=== PATIENT | female | born 1955 | race Caucasian/White ===

== ENCOUNTER → 2019-04-29 | Outpatient (CLI) | payer MEDICARE ==
[2019-04-29 12:50] LABS: HCT 42.2 % (34.0-46.0); HGB 13.5 gm/dL (11.4-16.0); MCH 28.9 pg (25.0-35.0); MCV 90.4 fL (80.0-100.0); Mean Platelet Volume 7.1; Platelet Count 239 k/uL (150-450); RBC 4.67 m/uL (3.80-5.40); RDW 13.1 % (11.5-15.5)
[2019-04-29 12:59] LABS: African American GFR (CKD) >90 (>60 ml/min/1.73 sqM); Anion Gap 6 mmol/L; Blood Urea Nitrogen 17 mg/dL (7-17); Carbon Dioxide 30 mmol/L (22-30); Chloride 107 mmol/L (98-107); Potassium 5.1 mmol/L (3.5-5.1); Sodium 143 mmol/L (137-145)
== END | disposition home or self-care (01) ==
LOC: LABPAT 11:37
PROVIDERS: ATTEND Internal Medicine Interventional Cardiology
DX: Z01.812 Encounter for preprocedural laboratory examination (principal); I48.0 Paroxysmal atrial fibrillation
CPT/HCPCS: 36415; 80051; 82565; 84520; 85027

== ENCOUNTER 2019-04-30 06:32 | Day surgery (SDC) | payer MEDICARE, OTHER ==
[~2019-04-30 06:32] MED LIST: BENZOCAINE SPRAY 1 CAN TOPICAL PRN; LACTATED RINGERS 1,000 ML IV SCH; MIDAZOLAM 2 MG/2 ML VIAL IV ONE; SODIUM CHLORIDE 0.9% 1,000 ML IV SCH; fentaNYL (PF) 50 MCG/ML 5 ML AMP IVP ONE
[2019-04-30 06:59] VITALS: TEMP 97.6
[2019-04-30] MEDS ORDERED: LIDOCAINE 1% INJ 10MG/ML (20 ML MDV) ONE (07:28)
[2019-04-30] MEDS ORDERED: PROPOFOL 10 MG/ML 20 ML VIAL IV ONE (07:28)
[2019-04-30] MEDS ORDERED: BENZOCAINE SPRAY 1 CAN MUCOUS MEM ONE (07:54)
--- NOTE | 2019-04-30 08:12 | P.PCN ---
Date of Procedure: 04/30/19 Operative Findings: TRANSESOPHAGEAL ECHOCARDIOGRAM MILITARY TECHNICIAN: JOSE HOLLEY MD, RPVI INDICATION: This is a 64-year-old female patient who was diagnosed recently with atrial fibrillation with uncontrolled heart rate. She was started on oral anticoagulation and brought today to undergo a cardioversion. The AMY is to rule out any intracardiac thrombus. SEDATION: Deep sedation was performed using propofol with CALCULUS PROFESSOR in the room. COMPLICATION: None PROCEDURE DESCRIPTION: After obtaining an informed consent, the patient was brought to transesophageal echocardiogram room. Pulse oximetry and heart monitors were attached to the patient. The patient throat was sprayed using lidocaine. The patient was turned into left lateral position. After that a bite guard was placed. After an appropriate conscious sedation was initiated, the transesophageal echocardiogram was advanced through a bite guard into the mid esophagus. A 2-D echocardiogram images, color Doppler images, continuous wave images, pulse-wave images, of various cardiac structure were performed. After that the transesophageal echocardiogram probe was advanced into the stomach and fixed to obtain transgastric view was. The probe was brought into the mid esophagus. Inter-atrial septum was interrogated using 2D images, color Doppler images, and then contrast study. After that transesophageal echocardiogram was withdrawn out and upon withdrawing the descending thoracic aorta all the way up to the arch was evaluated. FINDING: The left atrium is severely dilated. The left atrial appendage appeared to be free from any thrombus. Intra-atrial septum appeared to be intact with color flow Doppler. No contrast study was performed. The left ventricle appeared to be mildly impaired in terms of ejection fraction was EF around 45%. The aortic valve is trileaflet valve without stenosis or regurgitation. The mitral valve is thickened with evidence of moderate mitral regurgitation. There was mild tricuspid regurgitation and mild pulmonic insufficiency. CONCLUSION: 1. Severely dilated left atrium 2. Intact left atrial appendage without any evidence of thrombus 3. Intact interatrial septum by color flow Doppler. No contrast study was performed 4. Mildly impaired LV function was EF around 45% 5. Thickened mitral valve leaflets with moderate MR 6. Trileaflet aortic valve without stenosis or regurgitation 7. Normal tricuspid valve and pulmonary valve 8. Normal aortic root dimension 9. No evidence of pericardial effusion 10. Please note that the patient was agitated in spite of giving propofol.
--- NOTE | 2019-04-30 08:14 | P.PCN ---
Date of Procedure: 04/30/19 Operative Findings: CARDIOVERSION REPORT Performing physician Denver Guillen MD, RPVI Procedure performed Successful cardioversion of atrial fibrillation to normal sinus mechanism using 200 J and first attempt Complication None Level of sedation Deep sedation was performed using propofol and CHIEF FUNDRAISING OFFICER in the room Procedure description After AMY was performed and left atrial appendage thrombus was ruled out we pursued with a cardioversion. The patient cardioverted from atrial fibrillation to normal sinus mechanism using 200 J and first attempt Conclusion Successful cardioversion of atrial fibrillation to normal sinus mechanism using 200 J and first attempt Postprocedure management 1. Increase the dose of metoprolol to 25 mg by mouth 3 times a day 2. Obtain a 12 please EKG 3. Continue oral anticoagulation 4. Follow-up with the patient
[2019-04-30 09:59] VITALS: BP 99/64; PULSE 58; RESP 16
== END 2019-04-30 10:00 | disposition home or self-care (01) ==
LOC: CATHCVL 06:32
PROVIDERS: ATTEND Internal Medicine Interventional Cardiology
DX: I48.0 Paroxysmal atrial fibrillation (principal); I08.1 Rheumatic disorders of both mitral and tricuspid valves; Z79.01 Long term (current) use of anticoagulants; Z79.899 Other long term (current) drug therapy; Z88.5 Allergy status to narcotic agent; Z87.891 Personal history of nicotine dependence; Z90.710 Acquired absence of both cervix and uterus; Z90.89 Acquired absence of other organs
CPT/HCPCS: 93312; 93320; 93005; 93325; 92960; J2001; J2704

== ENCOUNTER → 2019-05-28 | Outpatient (CLI) | payer MEDICARE ==
[2019-05-28 08:53] LABS: HCT 39.7 % (34.0-46.0); HGB 13.4 gm/dL (11.4-16.0); MCH 30.3 pg (25.0-35.0); MCHC 33.8 g/dL (31.0-37.0); MCV 89.5 fL (80.0-100.0); Mean Platelet Volume 7.6; Platelet Count 244 k/uL (150-450); RBC 4.44 m/uL (3.80-5.40); RDW 12.9 % (11.5-15.5); WBC 6.9 k/uL (3.8-10.6)
[2019-05-28 09:09] LABS: African American GFR (CKD) >90 (>60 ml/min/1.73 sqM); Anion Gap 8 mmol/L; Blood Urea Nitrogen 14 mg/dL (7-17); Carbon Dioxide 26 mmol/L (22-30); Chloride 107 mmol/L (98-107); Non-African American GFR(CKD) >90 (>60 ml/min/1.73 sqM); Potassium 4.7 mmol/L (3.5-5.1); Sodium 141 mmol/L (137-145)
== END | disposition home or self-care (01) ==
LOC: LABWHC1 08:26
PROVIDERS: ATTEND Internal Medicine Interventional Cardiology
DX: Z01.812 Encounter for preprocedural laboratory examination (principal); I48.0 Paroxysmal atrial fibrillation
CPT/HCPCS: 36415; 80051; 82565; 84520; 85027

== ENCOUNTER 2019-05-31 10:51 | Day surgery (SDC) | payer MEDICARE ==
[2019-05-26 11:55] VITALS: BMI 35.2
[~2019-05-31 10:51] MED LIST changes: +ALPRAZolam 0.25 MG TAB PO PRN; +ALPRAZolam 0.5 MG TAB PO PRN; +ASPIRIN 325 MG TAB PO STA; +ATORVASTATIN 80 MG TAB PO STA; -BENZOCAINE SPRAY 1 CAN TOPICAL PRN; -LACTATED RINGERS 1,000 ML IV SCH; -MIDAZOLAM 2 MG/2 ML VIAL IV ONE; +NITROGLYCERIN SL TABS 0.4 MG TAB SUBLINGUAL PRN; -SODIUM CHLORIDE 0.9% 1,000 ML IV SCH; +SODIUM CHLORIDE 0.9% 1,000 ML in EMPTY BAG 1 BAG IV ONE; -fentaNYL (PF) 50 MCG/ML 5 ML AMP IVP ONE
[2019-05-31 11:21] VITALS: TEMP 97.9
[2019-05-31] MEDS ORDERED: LIDOCAINE 1% INJ 10MG/ML (20 ML MDV) ONE (11:48)
[2019-05-31] MEDS ORDERED: VERAPAMIL 2.5 MG/ML 2 ML AMP ONE (11:48)
[2019-05-31] MEDS ORDERED: HEPARIN SODIUM 1,000 UN/ML (10ML VL) ONE (11:48)
[2019-05-31] MEDS ORDERED: MIDAZOLAM 2 MG/2 ML VIAL IVP ONE (12:20)
[2019-05-31] MEDS ORDERED: LIDOCAINE 1% INJ 10MG/ML (20 ML MDV) SQ ONE (12:23)
[2019-05-31] MEDS: VERAPAMIL SYRINGE (5 MG/10 ML) INTRAARTER ONE ×3 (12:25→12:36)
[2019-05-31] MEDS ORDERED: HEPARIN SODIUM 1,000 UN/ML (10ML VL) IV ONE (12:26)
[2019-05-31] MEDS ORDERED: MIDAZOLAM 2 MG/2 ML VIAL IV ONE (12:29)
[2019-05-31] MEDS ORDERED: IOPAMIDOL-370 125ML BTL INJ ONE ×2 (12:34→12:37)
[2019-05-31] MEDS ORDERED: RX INFO: IV CONTRAST WAS GIVEN 1 EACH MISC MISCELLANE PRN (12:39)
[2019-05-31] MEDS ORDERED: SODIUM CHLORIDE 0.9% 1,000 ML IV SCH (12:45)
[2019-05-31 14:34] VITALS: BP 112/84; PULSE 85; RESP 18
--- NOTE | 2019-05-31 16:10 | LTR ---
DATE OF SERVICE: 05/31/[address] Aguiar: I had the pleasure of seeing Natasha Fitzpatrick at [facility] on May 31, 2019. As you know, she is a pleasant 64-year-old female patient who I follow in the office for atrial fibrillation. She underwent cardioversion and she came back to atrial fibrillation after that. A stress test was performed to assess for severe CAD and that came in to be abnormal. I did perform a heart catheterization on her and that revealed normal coronaries. A copy of the heart catheterization will be forwarded to you. She is going to be discharged home today and I will follow up with her in the office next week. I want to thank you for allowing us to participate in her care and please do not hesitate to call if you have any question or concerns. Sincerely, ALISA / TETE: [id number] /
--- NOTE | 2019-05-31 16:40 | CC ---
CARDIAC CATHETERIZATION REPORT DATE OF SERVICE: May 31, 2019 PERFORMING PHYSICIAN: Denver Guillen MD. PROCEDURE PERFORMED: 1. Selective right and left coronary angiogram. 2. Left heart catheterization. INDICATION: This is a 64-year-old female patient with history of paroxysmal atrial fibrillation as well as significant history of smoking, who underwent recently cardioversion and subsequently she came back to atrial fibrillation. She underwent myocardial perfusion imaging stress test and that revealed reversible defect. Because of that, a heart catheterization was advised. APPROACH: Right radial artery. COMPLICATION: None. LEVEL OF SEDATION: Moderate with sedation length of 14 minutes. PROCEDURE DESCRIPTION: After obtaining informed consent, the patient was brought to the cardiac greens laborer. The right radial artery was cannulated using micropuncture technique, the micropuncture wire passed easily. Then I placed a 6-E[place] sheath in the right radial artery. After that I gave the patient 2 mg of verapamil IA and 10,000 units of heparin IV. I did selective right and left coronary angiogram using JR4 and JL3.5 catheters. Left heart catheterization was performed using the JR4 catheter which crossed the aortic valve. Then I did pullback across aortic valve. The procedure was completed without any complication. SELECTIVE CORONARY ANGIOGRAM: 1. The right coronary artery is a moderate caliber vessel and is a dominant vessel and appeared to be angiographically normal. It distally bifurcates into PDA and PLV branches and both appeared to be angiographically normal. 2. The left main is angiographically normal. It is a short left main. It bifurcates into LCX and LAD. 3. The LCX is a large caliber vessel, it is a nondominant vessel. The left circumflex is angiographically normal. In the midportion gives rise into a large OM branch which seems to be normal. Distally, the circ continues to be normal. 4. The LAD is a large caliber vessel. It is angiographically normal. In the midportion, gives rise into a medium caliber branch diag which is angiographically normal. HEMODYNAMICS: The LVEDP was 10 mmHg without significant gradient across the aortic valve. CONCLUSION: 1. Normal coronary angiogram. 2. Normal left ventricular end-diastolic pressure. POSTPROCEDURE MANAGEMENT: 1. Medical treatment. 2. Follow up with the patient. MMODL / IJN: [id number] /
== END 2019-05-31 17:25 | disposition home or self-care (01) ==
LOC: CATHCVL 10:51
PROVIDERS: ATTEND Internal Medicine Interventional Cardiology
DX: I48.0 Paroxysmal atrial fibrillation (principal); R94.39 Abnormal result of other cardiovascular function study; R06.02 Shortness of breath; Z72.0 Tobacco use; Z79.01 Long term (current) use of anticoagulants; Z79.899 Other long term (current) drug therapy
CPT/HCPCS: 93458; C1894; J2250; J2001; J1644; Q9967

== ENCOUNTER 2024-01-27 08:00 | Day surgery (SDC) | payer MEDICARE ==
[2024-01-27] MEDS ORDERED: LACTATED RINGERS 1,000 ML BAG ONE (09:00)
[2024-01-27] MEDS ORDERED: PROPOFOL 10 MG/ML 20 ML VIAL IV ONE (09:27)
[2024-01-27] MEDS ORDERED: LIDOCAINE 1% INJ 10MG/ML (20 ML MDV) ONE (09:27)
--- NOTE | 2024-02-18 13:00 | P.PCN ---
Date of Procedure: 01/27/24 Procedure(s) Performed: This an addendum to the procedure was performed on 01/27/2024. Procedure performed colonoscopy with snare polypectomy Procedure: The colonoscopy was advanced all the way to the cecum. Careful examination was performed as the scope was gradually being withdrawn.
== END 2024-01-27 10:30 | disposition home or self-care (01) ==
LOC: ORWHC2ENDO 08:00
PROVIDERS: ATTEND Internal Medicine Gastroenterology
DX: K63.5 Polyp of colon (principal); K57.30 Diverticulosis of large intestine without perforation or abscess without bleeding; E78.5 Hyperlipidemia, unspecified; I48.91 Unspecified atrial fibrillation; Z88.5 Allergy status to narcotic agent; Z79.01 Long term (current) use of anticoagulants; Z79.84 Long term (current) use of oral hypoglycemic drugs; Z79.899 Other long term (current) drug therapy
CPT/HCPCS: 45380

== ENCOUNTER → 2024-03-25 | Outpatient (CLI) | payer MEDICARE ==
--- NOTE | 2024-03-25 23:57 | XR ---
EXAMINATION TYPE: XR chest 2V DATE OF EXAM: 03/25/2024 2:54 PM CLINICAL INDICATION: Female, 69 years old with history of R05.9 cough, unspecified; [facility] COMPARISON: None TECHNIQUE: XR chest 2V Frontal view of the chest. FINDINGS: Lungs/Pleura: Scattered subtle reticular and hazy opacities. No evidence of pneumothorax, focal conso lidation or pleural effusion. Pulmonary vascularity: Unremarkable. Heart/mediastinum: Cardiomediastinal silhouette is unremarkable. Musculoskeletal: No acute osseous pathology. Other findings: None IMPRESSION: Subtle scattered opacities which may represent an atypical pneumonia. . [facility], , 03/25/2024 11:55 PM
== END | disposition home or self-care (01) ==
LOC: RADXRMAIN 14:27
PROVIDERS: ATTEND Family Medicine
DX: R05.9 Cough, unspecified
CPT/HCPCS: 71046

== ENCOUNTER → 2024-04-07 | Outpatient (CLI) | payer MEDICARE ==
[2024-04-07 15:32] LABS: % Iron Saturation 26.25 (12.00-45.00); ALT 16 U/L (8-44); AST 14 U/L (13-35); Albumin 4.1 g/dL (3.8-4.9); Albumin/Globulin Ratio 1.71 Ratio (1.60-3.17); Alkaline Phosphatase 69 U/L (41-126); BUN/Creat Ratio 24.57 Ratio (12.00-20.00); Blood Urea Nitrogen 17.2 mg/dL (9.0-27.0); Calcium 9.1 mg/dL (8.7-10.3); Carbon Dioxide 22.4 mmol/L (21.6-31.8); Chloride 105 mmol/L (96-109); Chol/HDL Ratio 3.67 Ratio; Globulin 2.4 g/dL (1.6-3.3); Glucose 128 mg/dL (70-110); Iron 79 UG/DL (50-170); LDL Cholesterol,Calculated 95.4 mg/dL (0.0-131.0); Potassium 4.4 mmol/L (3.5-5.5); Sodium 140 mmol/L (135-145); Total Bilirubin 0.6 mg/dL (0.3-1.2); Total Iron Binding Capacity 301 UG/DL (228-460); Total Protein 6.5 g/dL (6.2-8.2)
[2024-04-07 15:38] LABS: Basophils # (A) 0.03 X 10*3/uL (0.00-0.10); Basophils % (A) 0.4 %; Eosinophils # (A) 0.13 X 10*3/uL (0.04-0.35); Eosinophils % (A) 1.8 %; HGB 13.1 g/dL (12.0-15.0); Lymphocytes # (A) 1.62 X 10*3/uL (0.90-5.00); Lymphocytes % (A) 22.5 %; MCH 29.4 pg (27.0-32.0); MCV 91.9 FL (80.0-97.0); Mean Platelet Volume 10.8 FL (9.5-12.2); Monocytes # (A) 0.39 X 10*3/uL (0.20-1.00); Monocytes % (A) 5.4 %; NRBC Per 100 WBC 0 X 10*3/uL (0.00-0.01); Neutrophils # (A) 5.01 X 10*3/uL (1.80-7.70); Neutrophils % (A) 69.6 %; Platelet Count 309 X 10*3/uL (140-440); RBC 4.46 X 10*6/uL (4.10-5.20); RDW 13.5 % (11.5-14.5)
== END | disposition home or self-care (01) ==
LOC: LABWHC1 11:06
PROVIDERS: ATTEND Family Medicine
CPT/HCPCS: 36415; 80053; 80061; 82306; 82607; 82728; 82747; 83036; 83540; 83550; 85025; 85045

== ENCOUNTER → 2024-10-26 | Outpatient (CLI) | payer MEDICARE ==
[2024-10-26 15:07] LABS: Basophils # (A) 0.04 X 10*3/uL (0.00-0.10); Basophils % (A) 0.6 %; Eosinophils # (A) 0.19 X 10*3/uL (0.04-0.35); Eosinophils % (A) 2.8 %; HCT 40.9 % (37.2-46.3); HGB 13.1 g/dL (12.0-15.0); Lymphocytes # (A) 1.69 X 10*3/uL (0.90-5.00); Lymphocytes % (A) 24.8 %; MCH 29.3 pg (27.0-32.0); MCV 91.5 FL (80.0-97.0); Mean Platelet Volume 10.9 FL (9.5-12.2); Monocytes # (A) 0.47 X 10*3/uL (0.20-1.00); Monocytes % (A) 6.9 %; NRBC Per 100 WBC 0 X 10*3/uL (0.00-0.01); Neutrophils % (A) 64.6 %; Platelet Count 224 X 10*3/uL (140-440); RBC 4.47 X 10*6/uL (4.10-5.20); RDW 13.8 % (11.5-14.5); WBC 6.81 X 10*3/uL (4.50-10.00)
[2024-10-26 15:21] LABS: ALT 16 U/L (8-44); AST 17 U/L (13-35); Albumin 4.1 g/dL (3.8-4.9); Albumin/Globulin Ratio 1.64 Ratio (1.60-3.17); Alkaline Phosphatase 69 U/L (41-126); BUN/Creat Ratio 24.33 Ratio (12.00-20.00); Blood Urea Nitrogen 14.6 mg/dL (9.0-27.0); Calcium 9.1 mg/dL (8.7-10.3); Carbon Dioxide 22.1 mmol/L (21.6-31.8); Chloride 109 mmol/L (96-109); Chol/HDL Ratio 3.71 Ratio; Globulin 2.5 g/dL (1.6-3.3); Glucose 122 mg/dL (70-110); LDL Cholesterol,Calculated 105.9 mg/dL (0.0-131.0); Potassium 4.4 mmol/L (3.5-5.5); Sodium 143 mmol/L (135-145); Total Bilirubin 0.4 mg/dL (0.3-1.2); Total Protein 6.6 g/dL (6.2-8.2)
== END | disposition home or self-care (01) ==
LOC: LABWHC1 09:11
PROVIDERS: ATTEND Family Medicine
DX: E78.5 Hyperlipidemia, unspecified (principal)
CPT/HCPCS: 36415; 80053; 80061; 85025